=== PATIENT | female | born 1945 | race Caucasian/White ===

== ENCOUNTER → 2017-08-30 | Outpatient (CLI) | payer MEDICARE ==
[~2017-08-30] MED LIST: ASPIR 8181 MG PO; BIOTIN; BONIVA150 MG PO; CENTRUM SILVER1 EAC2 PO; CIPROFLOXACIN500 M1 PO; FENOFIBRATE; FENOFIBRATE160 MG PO; FISH OIL 1,001000 M2 PO; FLAGYL500 MG PO; LEVOTHYROXINE; LEVOXYL50 MCG PO; MELATONIN5 M1 PO; MULTIVITAMINS1 EAC7; SUPER B COMPLE150 MG PO; VITAMIN K240 MCG PO; ZOFRAN 4 MG ORAL4 MG PO
== END ==
LOC: M.ULTRA 07:16
DX: R10.31 Right lower quadrant pain (principal); R10.2 Pelvic and perineal pain

== ENCOUNTER → 2017-09-20 | Outpatient (CLI) | payer MEDICARE | LOC: M.ULTRA 10:06 | DX: I65.23 Occlusion and stenosis of bilateral carotid arteries (principal); I05.9 Rheumatic mitral valve disease, unspecified; E72.11 Homocystinuria; E78.2 Mixed hyperlipidemia; Z82.3 Family history of stroke ==

== ENCOUNTER 2018-02-17 12:52 | Emergency (ER) | payer MEDICARE ==
[~2018-02-17] VITALS: Ht 165.1 cm; Wt 59.9 kg
[~2018-02-17 12:52] MED LIST changes: -ASPIR 8181 MG PO; -BONIVA150 MG PO; -CENTRUM SILVER1 EAC2 PO; -FENOFIBRATE160 MG PO; -FISH OIL 1,001000 M2 PO; -LEVOXYL50 MCG PO; -MELATONIN5 M1 PO; -SUPER B COMPLE150 MG PO; -VITAMIN K240 MCG PO
[2018-02-17] MEDS ORDERED: VITAMIN K240 MCG PO (13:00)
[2018-02-17] MEDS ORDERED: LEVOXYL50 MCG PO (13:00)
[2018-02-17] MEDS ORDERED: FENOFIBRATE160 MG PO (13:00)
[2018-02-17] MEDS ORDERED: BONIVA150 MG PO (13:00)
[2018-02-17] MEDS ORDERED: MELATONIN5 M1 PO (13:01)
[2018-02-17] MEDS ORDERED: FISH OIL 1,001000 M2 PO (13:01)
[2018-02-17] MEDS ORDERED: ASPIR 8181 MG PO (13:01)
[2018-02-17] MEDS ORDERED: CENTRUM SILVER1 EAC2 PO (13:01)
[2018-02-17] MEDS ORDERED: SUPER B COMPLE150 MG PO (13:01)
[2018-02-17 14:22] LABS: ABSOLUTE BASOPHILS 0.1 thou/uL (0.0-0.2); ABSOLUTE EOSINOPHILS 0.1 thou/uL (0.0-0.7); ABSOLUTE MONOCYTES 0.6 thou/uL (0.0-1.2); ABSOLUTE NEUTROPHILS 7.5 thou/uL (1.6-8.1); BASOPHILS 0.9 %; EOSINOPHILS 1.1 %; HEMOGLOBIN 13.1 gm/dL (12.0-15.0); LYMPHOCYTES 10.4 %; MCH 30.6 pg (26.0-34.0); MCHC 33.5 g/dL (28.0-37.0); MCV 91.4 fL (80.0-100.0); MPV 9.1 fl. (7.2-11.1); NUCLEATED RBCS 0 /100WBC; PLATELET COUNT* 257 thou/uL (150-400); POLYS 81.6 %; RBC 4.26 mil/uL (4.20-5.00); RDW-CV 15.2 % (10.5-14.5); WBC 9.2 thou/uL (4.0-11.0)
[2018-02-17 14:23] LABS: CALCIUM 9.3 mg/dL (8.5-10.1); CREATININE 0.9 mg/dL (0.6-1.3); POTASSIUM 3.6 mmol/L (3.5-5.1)
[2018-02-17 14:27] LABS: ALBUMIN 3.6 g/dL (3.4-5.0); TOTAL BILIRUBIN 0.4 mg/dL (<0.1-1.0); TOTAL PROTEIN 6.9 g/dL (6.4-8.2)
[2018-02-17 16:10] VITALS: BP 122/45
== END 2018-02-17 16:12 | disposition short-term general hospital (02) ==
LOC: M.ERS 12:52
PROVIDERS: Personal Emergency Response Attendant
DX: S42.192A Fracture of other part of scapula, left shoulder, initial encounter for closed fracture (principal); S22.32XA Fracture of one rib, left side, initial encounter for closed fracture; S00.03XA Contusion of scalp, initial encounter; E78.00 Pure hypercholesterolemia, unspecified; E03.9 Hypothyroidism, unspecified; Z88.1 Allergy status to other antibiotic agents; Z88.8 Allergy status to other drugs, medicaments and biological substances; W17.89XA Other fall from one level to another, initial encounter; Y93.89 Activity, other specified; Y92.89 Other specified places as the place of occurrence of the external cause; Y99.8 Other external cause status

== ENCOUNTER → 2018-05-10 | Outpatient (CLI) | payer MEDICARE ==
[~2018-05-10] MED LIST changes: +ASPIR 8181 MG PO; +BONIVA150 MG PO; +CENTRUM SILVER1 EAC2 PO; +FENOFIBRATE160 MG PO; +FISH OIL 1,001000 M2 PO; +LEVOXYL50 MCG PO; +MELATONIN5 M1 PO; +SUPER B COMPLE150 MG PO; +VITAMIN K240 MCG PO
== END ==
LOC: M.RAD 10:17
DX: Z12.31 Encounter for screening mammogram for malignant neoplasm of breast (principal)

== ENCOUNTER → 2018-09-26 | Outpatient (CLI) | payer MEDICARE | LOC: M.RAD 14:27 | DX: N95.1 Menopausal and female climacteric states (principal) ==

== ENCOUNTER → 2019-05-15 | Outpatient (CLI) | payer MEDICARE | LOC: M.RAD 10:02 | DX: Z12.31 Encounter for screening mammogram for malignant neoplasm of breast (principal) ==

== ENCOUNTER → 2020-05-22 | Outpatient (CLI) | payer MEDICARE | LOC: M.RAD 10:46 | PROVIDERS: ATTEND Registered Nurse Diabetes Educator | DX: Z12.31 Encounter for screening mammogram for malignant neoplasm of breast (principal) ==

== ENCOUNTER → 2021-02-24 | Outpatient (CLI) | payer MEDICARE | LOC: M.RAD 14:30 | PROVIDERS: ATTEND Registered Nurse Diabetes Educator | DX: Z13.820 Encounter for screening for osteoporosis (principal); E28.39 Other primary ovarian failure; N95.1 Menopausal and female climacteric states; E55.9 Vitamin D deficiency, unspecified; E03.9 Hypothyroidism, unspecified; Z88.8 Allergy status to other drugs, medicaments and biological substances ==

== ENCOUNTER → 2021-06-10 | Outpatient (CLI) | payer MEDICARE | LOC: M.RAD 11:10 | PROVIDERS: ATTEND Registered Nurse Diabetes Educator | DX: Z12.31 Encounter for screening mammogram for malignant neoplasm of breast (principal) ==